=== PATIENT | male | born 1955 | race Caucasian/White ===

== ENCOUNTER 2019-02-02 21:21 | Emergency (ER) | payer OTHER, SELFPAY ==
[2019-02-02 21:42] VITALS: BP 154/87; PULSE 98; RESP 16; TEMP 36.5; O2SAT 94
--- NOTE | 2019-02-02 22:01 | ED.GENADUL_ITS ---
Discharge Plan Disposition Patient Disposition: HOME Condition: Good Discharge Details Chief Complaint: Orthopedic Clinical Impression: Contusion of left upper extremity Primary Care Provider: Rissa Rodriguez ED Provider: Mp Persaud Home Meds and New Rx's Prescriptions: Continued lisinopril 10 MG tablet 10 mg PO DAILY RF: 0 omega-3 fatty acids-fish oil 1 EACH capsule 1 ea PO DAILY RF: 0 Humulin N Pen 100 UNIT/1 ML insulin pen BID RF: 0 Humulin R Regular U-100 Insuln 100 unit/mL Solution RF: 0 Discharge Instructions Additional Instructions: X-rays are negative for fracture. Please keep your arm in a sling to help keep it elevated. You should remove it periodically for range of motion. Keep arm elevated at night to keep the swelling down. May use acetaminophen or ibuprofen for pain. You should hear from the hospital as to when to come in for ultrasound to rule out DVT tomorrow. We will have you follow-up in the ED for results. Return to ED if you develop weakness, numbness, increasing pain in the arm. Referrals: [facility] [Provider Group] Medical Decision Making Patient with significant ecchymosis and swelling to the left upper extremity. Does not have significant tenderness distally. He is neurovascularly intact distally. Has no other injuries. Will obtain x-ray of the left humerus and left elbow to rule out fracture. 23:45 - X-rays of the left humerus and left elbow are negative for acute fracture or injury per my review and preliminary radiology read. Again, suspect all of the swelling is related to dependent edema due to the fact that he has not kept his arm elevated. He clearly has significant contusion and ecchymosis of the left upper extremity. Doubt upper extremity DVT but given the amount of edema I will have him return tomorrow for an ultrasound. However, due to the recent trauma with large ecchymotic region will hold off anticoagulating tonight. Have discussed this with him at length and he understands. Patient is placed in a sling to try to keep his arm elevated. He is to keep it elevated at night. May continue Tylenol and/or Motrin for pain. Return to hospital tomorrow for ultrasound and follow-up in the ED. Discharged in good condition. HPI General Mode of arrival: ambulatory . Date/Time Provider Initiated Documentation: 02/02/19 21:54 . Limitations to Documentation: no limitations . Information obtained by: patient . HPI Narrative: Patient presents to ED with left upper extremity pain and swelling. Patient fell off his wood pile onto his left arm 4 days ago. He has had pain in the left elbow and left mid upper arm since then. He developed bruising. Today his arm has been more swollen. He denies any numbness, tingling, weakness in the arm. He denies injury elsewhere. He did not have loss of consciousness. He denies headache. He denies neck or back pain. He denies rib pain or shortness of breath. He has no abdominal complaints. However, because of the increased swelling to the arm he came in for evaluation. Related Data Home Medications Medication Instructions Recorded Confirmed Humulin N Pen BID 03/09/13 03/09/13 lisinopril 10 mg PO DAILY tab-cap 08/05/17 02/02/19 omega-3 fatty acids-fish oil 1 ea PO DAILY 08/05/17 02/02/19 Humulin R Regular U-100 Insuln 02/02/19 Allergies Allergy/AdvReac Type Severity Reaction Status Date / Time simvastatin Allergy Mild Other (See Unverified 02/02/19 21:49 Comment) General Stated Complaint: Orthopedic LANETTE: 4 Review of Systems Review of Systems As documented in HPI otherwise negative as below. Const: no fever, chills, weakness Resp: no cough, SOB, pleuritic pain CV: no CP, diaphoresis, syncope GI: no abdominal pain, nausea, vomiting, diarrhea Neuro: no headache, numbness, focal weakness, confusion PFSH Medical History Diabetes mellitus (Chronic) Surgical History S/P Achilles tendon repair (Inactive) Social History Smoking/Tobacco Use Status: Never Alcohol Intake: never Drug use: Never Do you feel safe at home: Yes Do you feel safe in your relationship?: Yes Exam Narrative Exam Narrative: 1. Const: WDWN male in NAD. 2. Eyes: No conjunctival injection or scleral icterus. 3. ENT: NC/AT. No facial swelling or tenderness. Mucous membranes moist. 4. Neck: Supple without adenopathy. Trachea midline. No cervical spine ten derness. Normal ROM. 5. CVS: +S1/S2, No murmurs or gallops. . 6. RESP: Unlabored respiratory effort. Clear to auscultation bilaterally. No wheezes rales or rhonchi. No chest wall tenderness 7. GI: Soft, NT/ND, No hepatosplenomegaly. No guarding or rebound. 8. MSK: No C/C present. LUE with edema extending down to hand. Large ecchymotic region medial upper arm extending down to forearm. Radial and ulna pulse present. Distal motor and sensory in tact. Unable to raise arm up but able to flex and extend, pronate and supinate elbow. Tender in mid upper arm. No tenderness to shoulder/clavicle area. RUE and BLE normal. TLS spine is non- tender. 9. Skin: Warm, Dry. Large ecchymosis LUE 10. Neuro: A&O x3. superintendent electric power II-XII grossly intact. Sensation grossly intact, no focal neurologic deficits. 11. Psych: Appropriate mood and affect Course Vital Signs Temperature 97.7 F 02/02/19 21:42 Pulse 98 H 02/02/19 21:42 Respiratory Rate 16 02/02/19 21:42 Blood Pressure 154/87 H 02/02/19 21:42 Pulse Oximetry 94 L 02/02/19 21:42 Temperature 97.7 F 02/02/19 21:42 Temperature Source Temporal Artery Scan 02/02/19 21:42 Pulse 98 H 02/02/19 21:42 Respiratory Rate 16 02/02/19 21:42 Respiratory Effort 02/02/19 21:42 Blood Pressure 154/87 H 02/02/19 21:42 Pulse Oximetry 94 L 02/02/19 21:42 Oxygen Delivery Method Room Air 02/02/19 21:42 Oxygen Flow Rate 0 02/02/19 21:42 Pain Level 7 02/02/19 21:48
--- NOTE | 2019-02-02 22:27 | DI.RAD_ITS ---
SYMPTOM/DIAGNOSIS: TRAUMA, PAIN, SWELLING, FELL LEFT ELBOW AND LEFT HUMERUS: There are osseous fragments seen in the posterior medial soft tissues adjacent to the distal humerus. These are of uncertain acuity and significance. No definite fracture or dislocation is appreciated. IMPRESSION: No definite acute fracture or dislocation of the left elbow or left humerus.
--- NOTE | 2019-02-02 23:37 | DI.VRAD_ITS ---
EXAM: XR Left Elbow Complete, 3 or more Views EXAM DATE/TIME: 02/02/2019 10:11 PM CLINICAL HISTORY: 63 years old, male; Injury or trauma; Fall; Initial encounter; Blunt trauma (contusions or hematomas; Elbow; Left; Injury date: 01/30/2019; Injury details: PT fell and hit the edge of a trailer TECHNIQUE: Imaging protocol: XR Left elbow, 3 or more views. COMPARISON: CR XR humerus LT 02/02/2019 10:19 PM FINDINGS: Bones/joints: Mild degenerative changes. No acute fracture. Alignment anatomic. Soft tissues: Normal. IMPRESSION: No acute bony abnormality. Dictated and Authenticated by: Leon Hopkins MD. Ordering:CAROLINE Gresham MD
--- NOTE | 2019-02-02 23:39 | DI.VRAD_ITS ---
EXAM: XR Left Humerus, 2 or More Views EXAM DATE/TIME: 02/02/2019 10:11 PM CLINICAL HISTORY: 63 years old, male; Injury or trauma; Fall; Initial encounter; Blunt trauma (contusions or hematomas; Arm, upper; Left; Injury date: 01/30/2019; Injury details: PT fell onto trailer rim TECHNIQUE: Imaging protocol: XR Left humerus, 2 or more views. COMPARISON: No relevant prior studies available. FINDINGS: Bones/joints: Normal. Soft tissues: Normal. IMPRESSION: No acute findings. Dictated and Authenticated by: Leon Hopkins MD. Ordering:CAROLINE Gresham MD
== END 2019-02-02 23:56 | disposition home or self-care (01) ==
PROVIDERS: Emergency Provider Emergency Medicine; PCP Nurse Practitioner Family
DX: S40.022A Contusion of left upper arm, initial encounter (principal); R60.9 Edema, unspecified; W01.0XXA Fall on same level from slipping, tripping and stumbling without subsequent striking against object, initial encounter
CPT/HCPCS: 99284; 73060; 73080; L3650; L3908

== ENCOUNTER 2019-02-03 14:38 | Outpatient (CLI) | payer OTHER, SELFPAY ==
--- NOTE | 2019-02-03 13:24 | DI.US_ITS ---
SYMPTOMS/DIAGNOSIS: LEFT UPPER EXTREMITY SWELLING S/P FALL LAST NIGHT LEFT UPPER EXTREMITY ULTRASOUND: The visualized portions of the left internal jugular and subclavian veins are unremarkable. The left axillary, basilic, brachial and cephalic veins show normal compression, augmentation and color flow. No evidence of a deep venous thrombus is seen in the left upper extremity. IMPRESSION: No evidence of a left upper extremity deep venous thrombus.
== END 2019-02-03 14:58 ==
PROVIDERS: PCP Nurse Practitioner Family; Visit Provider Emergency Medicine
DX: M79.89 Other specified soft tissue disorders (principal); S40.022D Contusion of left upper arm, subsequent encounter
CPT/HCPCS: 93971

== ENCOUNTER 2019-11-03 16:24 | Outpatient (REF) | payer OTHER, SELFPAY ==
[2019-11-03 19:10] LABS: Anion Gap 8.2 mmol/L (3-11); BUN 15 mg/dL (7-18); CO2 30.8 mmol/L (21.0-32.0); CREATININE 0.93 mg/dL (0.70-1.30); Chloride 103 mmol/L (98-107); Glucose 120 mg/dL (74-106); Sodium 142 mmol/L (136-145)
[2019-11-03 19:16] LABS: Calcium 9.6 mg/dL (8.5-10.1)
== END 2019-11-03 16:44 ==
LOC: NCHCN 16:24
PROVIDERS: PCP Nurse Practitioner Family; Visit Provider Nurse Practitioner Family
DX: I10 Essential (primary) hypertension (principal)
CPT/HCPCS: 80048

== ENCOUNTER 2020-08-24 05:27 | Emergency (ER) | payer OTHER, SELFPAY ==
--- NOTE | 2020-08-24 05:30 | ED.GENADUL_ITS ---
Discharge Plan Disposition Patient Disposition: HOME Condition: Improving Discharge Details Clinical Impression: Contusion of lower back and pelvis, initial encounter Primary Care Provider: Rissa Rodriguez ED Provider: Mp Persaud Meds and New Rx's Prescriptions: New lidocaine 5 % adhesive patch,medicated 1 patch topical DAILY Qty: 15 RF: 0 ibuprofen 600 mg tablet 600 mg PO Q8H PRNQty: 15 RF: 0 cyclobenzaprine 10 mg tablet 10 mg PO Q8H PRNQty: 15 RF: 0 Continued Humulin N Pen 100 UNIT/1 ML insulin pen BID RF: 0 Humulin R Regular U-100 Insuln 100 unit/mL Solution RF: 0 Discharge Instructions Instructions: Contusion in Adults (ED) Additional Instructions: Take it easy over the weekend with no heavy lifting, strenuous work. Gentle stretching and activity as tolerated along with ice on and off will be important. Medications as directed. Follow-up with primary care next week if not getting better. Return to ED for any neurologic change, abdominal pain, other concerns. Referrals: Rissa Rodriguez, [employer] [Primary Care Provider] - Medical Decision Making Patient with left lower back pain status post fall off a stepladder onto concrete. He is neurologically intact. He has no midline spinal tenderness. He reports urinating since the fall without gross hematuria. Pain extends from the costovertebral angle area to just above the pelvis. He appears very uncomfortable. Not a lot of tenderness with palpation. No obvious bruising. Suspect this is all muscular in nature with contusion but cannot rule out retroperitoneal injury given the amount of discomfort he is having. Will place IV and get laboratory studies and abdominal pelvic CT scan. Lidoderm, Flexeril, Toradol ordered. 07:30 - Patient's labs are ok. White count a little elevated likely demargination related to the stress of trauma. Urine negative. Sugar a little high but he is due for his insulin this morning. CT scan shows no r etroperitoneal injury, kidney injury, spinal injury. Patient's pain much better controlled with Lidoderm, Flexeril and Toradol. Will discharge with prescriptions for lidocaine patches, Flexeril and ibuprofen. Ice on and off for the weekend. Gentle stretching activity as tolerated. Follow-up with primary care next week if not getting better. Return to ED if any neurologic changes, abdominal pain, other concerns. Lab Data Lab results reviewed: Yes I reviewed the patient's lab results. HPI General Mode of arrival: ambulatory . Date/Time Provider Initiated Documentation: 08/24/20 05:28 . Limitations to Documentation: no limitations . Information obtained by: patient and RN notes reviewed . HPI Narrative: Patient presents to ED with lower back pain mostly left-sided status post falling off a stepladder onto his back. Patient was out in his garage trying to get some stuff done. He lost his balance on the ladder falling back onto the concrete floor. He did not strike his head and did not have loss of consciousness. He has no neck or upper back pain. He had significant lower back pain since the fall and has been unable to get comfortable. He has not taken anything at home. He denies chest pain or shortness of breath. He denies abdominal pain. He has urinated since the fall and he did not see any blood. He is unable to lie down. Feels better sitting or standing up but walks with a significant limp. Denies any weakness in the lower extremities. Denies any pain radiating into the lower extremities. Related Data Home Medications Medication Instructions Recorded Confirmed Humulin N Pen BID 03/09/13 03/09/13 Humulin R Regular U-100 Insuln 02/02/19 cyclobenzaprine 10 mg PO Q8H PRN #15 tab 08/24/20 ibuprofen 600 mg PO Q8H PRN #15 tab 08/24/20 lidocaine 1 patch TOPICAL DAILY #15 ea 08/24/20 Previous Rx's Medication Instructions Recorded cyclobenzaprine 10 mg PO Q8H PRN #15 tab 08/24/20 ibuprofen 600 mg PO Q8H PRN #15 tab 08/24/20 lidocaine 1 patch TOPICAL DAILY #15 ea 08/24/20 Allergies Allergy/AdvReac Type Severity Reaction Status Date / Time simvastatin Allergy Mild Other (See Unverified 02/02/19 21:49 Comment) General LANETTE: 4 Review of Systems Narrative: As documented in HPI otherwise negative as below. Const: no fever, chills, weakness Resp: no cough, SOB, pleuritic pain CV: no CP, diaphoresis, edema, syncope GI: no abdominal pain, nausea, vomiting, diarrhea Neuro: no headache, numbness, focal weakness, confusion [facility] Medical History (Updated 08/24/20 @ 07:35 by Mp Persaud MD) Diabetes mellitus Surgical History S/P Achilles tendon repair Social History Smoking/Tobacco Use Status: Never Alcohol Intake: never Drug use: Never Do you feel safe at home: Yes Do you feel safe in your relationship?: Yes Exam Narrative Exam Narrative: Vitals: Afebrile with normal vitals and normal room air pulse ox. Const: WDWN male appears uncomfortable. HEENT: NC/AT. Normal facial exam. Eyes: Normal conjunctiva and sclera. Neck: Supple. Trachea midline. No midline tenderness. Lungs: Normal respiratory effort. Lungs are clear. No rib tenderness. Cor: RRR without murmur/gallop. Good radial pulses. GI: Soft. NT/ND. No guarding or rebound. Back: No midline tenderness. L lumbar pain with movement, tender lower CVAT region. Neuro: A+O x 3. Normal speech, mentation. Cranial nerves II - XII grossly intact. No gross motor or sensory deficit. Ext: No deformity/tenderness. Skin: Warm and dry without lacs/abrasions.
[2020-08-24 05:34] VITALS: BP 138/79; PULSE 71; RESP 20; TEMP 36.4; O2SAT 95
[2020-08-24 06:12] LABS: Abs Immature Grans 0.11 10^3/uL (0.0-0.06); Absolute Basophil Count 0.08 10^3/uL (0.0-0.2); Absolute Eosinophil Count 0.09 10^3/uL (0.0-0.7); Absolute Lymphocyte Count 1.29 10^3/uL (1.2-3.4); Absolute Monocyte Count 1.28 10^3/uL (0.1-0.8); Absolute Neutrophil Count 12.71 10^3/uL (1.2-6.7); Basophils % 0.5; Eosinophils % 0.6; HCT 50.9 % (40.0-50.0); HGB 16.7 g/dL (13.5-17.5); Immature Grans % 0.7; Lymphocytes % 8.3; MCH 29.1 pg (27.0-33.0); MCHC 32.8 % (32.0-36.0); MCV 88.8 fL (80-95); MPV 10.6 fL (8.0-11.0); Monocytes % 8.2; Neutrophils % 81.7; Nucleated RBC 0 %; Platelet Count 256 10^3/uL (130-400); RBC 5.73 10^6/uL (4.36-5.78); RDW 12.6 % (11.8-14.1); RDW-SD 40.9 fL; WBC 15.56 10^3/uL (4.4-10.8)
[2020-08-24] MEDS: Ketorolac 15 MG/ML VIAL IVP (06:12)
[2020-08-24] MEDS: Cyclobenzaprine 10 MG TAB PO (06:12)
[2020-08-24] MEDS: Lidocaine 5% Patch 1 PATCH TP (06:12)
[2020-08-24] MEDS: Lactated Ringers 1,000 ML 150 ML IV (06:17)
[2020-08-24 06:26] LABS: ALT 53 U/L (16-63); AST 24 U/L (15-37); Albumin 3.7 g/dL (3.4-5.0); Alkaline Phosphatase 125 U/L (46-116); Anion Gap 7.6 mmol/L (3-11); BUN 18 mg/dL (7-18); Bilirubin, Total 0.7 mg/dL (0.2-1.0); CO2 25.4 mmol/L (21.0-32.0); CREATININE 1.17 mg/dL (0.70-1.30); Calcium 8.9 mg/dL (8.5-10.1); Chloride 106 mmol/L (98-107); Glucose 265 mg/dL (74-106); Potassium 4.5 mmol/L (3.5-5.1); Sodium 139 mmol/L (136-145); Total Protein 7.2 g/dL (6.4-8.2)
[2020-08-24 06:28] LABS: Bilirubin Negative (Negative); Blood Negative (Negative); Clarity Clear (Clear); Glucose 500 mg/dL (Negative); Ketones Negative (Negative); Leukocyte Esterase Negative (Negative); Nitrite Negative (Negative); Specific Gravity 1.025 (1.005-1.025); pH 5.5 (5-8)
[2020-08-24] MEDS: Normal Saline Flush 10 ML SYR IVP (06:43)
--- NOTE | 2020-08-24 06:43 | DI.CT_ITS ---
EXAM: CT ABDOMEN PELVIS W CLINICAL HISTORY: fall of ladder. TECHNIQUE: Imaging Protocol: Axial computed tomography images with coronal and sagittal reformatted images were created and reviewed CONTRAST MATERIAL: Intravenous: Omnipaque 350 Contrast volume:100 ml Oral: / no COMPARISON: No exams were available for comparison FINDINGS: ABDOMEN: Lung Bases: Mild atelectasis.. Liver: Hepatic steatosis.. No measurable mass. Gallbladder and biliary tract: No radiodense calculus or dilation. Pancreas: Normal density, no abnormal calcifications or inflammatory process. Spleen: Normal. Kidneys: Normal size, contour and axis. No radiodense stones or obstructive uropathy. No masses seen. Adrenal glands: No masses seen. Abdominal Aorta: Abdominal portion non-dilated. Small fatty containing umbilical hernia. Increased density in the on both sides of the anterior abdominal wall fat could be related to trauma versus injection sites. PELVIS: Bladder: Symmetric distention, no gross wall thickening. Bowel: Mild diverticulosis no obstruction or bowel wall thickening. Peritoneal cavity: No ascites, collection or mesenteric inflammatory response. Bones: Degenerative disc changes and facet degenerative changes. No acute fractures. Reproductive organs: Within normal limits. Lymph nodes: Unremarkable. Bilateral fatty containing inguinal hernias. Impression: Increased density in the subcutaneous fat of the anterior abdominal wall could be related to trauma v ersus injection sites. Clinical correlation is recommended. RADIATION DOSE DELIVERED: 864.22mGy.cm Total DLP DATA REPOSITORY: All CT scans at this facility are submitted to the National Radiology Data Registry (NRDR) Dose Index Registry (DIR) with the [employer] (A[employer]). RADIATION OPTIMIZATION: All CT scans at this facility use at least one of these dose optimization te chniques: automated exposure control; mA and/or kV adjustment per patient size (includes targeted exa ms where dose is matched to clinical indication); or iterative reconstruction.
[2020-08-24] MEDS: Omnipaque 350 MG/ML 100 ML BTL IJ (06:47)
[2020-08-24] MEDS: Normal Saline - Diluent 50 ML VIAL IV (06:48)
--- NOTE | 2020-08-24 07:36 | DI.VRAD_ITS ---
PROCEDURE INFORMATION: Exam: CT Abdomen And Pelvis With Contrast Exam date and time: 08/24/2020 5:53 AM Age: 65 years old Clinical indication: Abdominal pain; Generalized; Patient HX: Slipped off a rung on a ladder in garage, landed on back on cement floor TECHNIQUE: Imaging protocol: Computed tomography of the abdomen and pelvis with intravenous contrast. Radiation optimization: All CT scans at this facility use at least one of these dose optimization techniques: automated exposure control; mA and/or kV adjustment per patient size (includes targeted exams where dose is matched to clinical indication); or iterative reconstruction. Contrast material: [id number]; Contrast volume: 100 ml; Contrast route: INTRAVENOUS (IV); COMPARISON: No relevant prior studies available. FINDINGS: Lungs: Dependent atelectasis and/or scarring. Liver: There is a diffuse decrease in hepatic parenchymal density, consistent with fatty infiltration. Focal fatty sparing about the gallbladder fossa. Gallbladder and bile ducts: Unremarkable. No calcified stones. No ductal dilation. Pancreas: Unremarkable. No ductal dilation. Spleen: Unremarkable. No splenomegaly. Adrenals: Unremarkable. No mass. Kidneys and ureters: Unremarkable. No hydronephrosis. Stomach and bowel: Mild diverticulosis is present in the distal colon. There is no evidence of intestinal obstruction. There is no wall thickening to suggest enteritis or colitis. Appendix: No evidence of appendicitis. Intraperitoneal space: Unremarkable. No free air. No significant fluid collection. Vasculature: Unremarkable. No abdominal aortic aneurysm. Lymph nodes: Unremarkable. No enlarged lymph nodes. Urinary bladder: Unremarkable as visualized. Reproductive: Enlargement of the prostate gland. Bones/joints: No acute osseous findings. Thoracolumbar spondylosis. Severe bilateral facet hypertrophy at L4-L5. Severe degenerative changes of the superior sacroiliac joints. Osteitis pubis. Soft tissues: Bilateral fat containing inguinal hernias. Fat containing umbilical hernia. Bilateral symmetrical subcutaneous soft tissue densities of the lower abdomen. IMPRESSION: 1. No acute abdominopelvic findings. 2. Hepatic steatosis. 3. No acute osseous findings. 4. Mild diverticulosis of the distal colon. 5. Prostatomegaly. Correlate with PSA. 6. Bilateral symmetrical subcutaneous soft tissue densities of the lower abdomen. Recommend clinical correlation with physical examination of this area to correlate with trauma or cellulitis for example. Findings were discussed with PASQUALE HUIZAR at 08/24/2020 7:35 AM EDT. Dictated and Authenticated by: Carlos Alberto Jimenez MD. Ordering:CAROLINE Gresham MD
== END 2020-08-24 07:49 | disposition home or self-care (01) ==
PROVIDERS: Emergency Provider Emergency Medicine; PCP Nurse Practitioner Family
DX: S30.0XXA Contusion of lower back and pelvis, initial encounter (principal); W11.XXXA Fall on and from ladder, initial encounter; E11.9 Type 2 diabetes mellitus without complications; Z79.4 Long term (current) use of insulin
CPT/HCPCS: 36415; 80053; 96361; 96374; 99285; 74177; 81003; 85025; 99284; J1885; J3490

== ENCOUNTER 2021-03-24 16:32 | Outpatient (REF) | payer OTHER, SELFPAY ==
[2021-03-24 19:20] LABS: Anion Gap 7.9 mmol/L (3-11); BUN 19 mg/dL (7-18); CO2 27.1 mmol/L (21.0-32.0); CREATININE 1.1 mg/dL (0.70-1.30); Calcium 8.7 mg/dL (8.5-10.1); Chloride 105 mmol/L (98-107); Glucose 174 mg/dL (74-106); Sodium 140 mmol/L (136-145)
[2021-03-24 19:23] LABS: Hemoglobin A1C 8.7 % (<5.7)
== END 2021-03-24 16:33 | disposition home or self-care (01) ==
LOC: NCHCN 16:32
PROVIDERS: PCP Nurse Practitioner Family; Visit Provider Nurse Practitioner Family
DX: E78.5 Hyperlipidemia, unspecified (principal); E11.9 Type 2 diabetes mellitus without complications; I10 Essential (primary) hypertension
CPT/HCPCS: 80048; 83036

== ENCOUNTER 2022-01-23 00:21 | Outpatient (CLI) | payer OTHER, SELFPAY ==
--- NOTE | 2022-01-23 07:45 | DI.RAD_ITS ---
Exam(s) XR CHEST 2V PA LATERAL EXAM: XR CHEST 2V PA LATERAL CLINICAL HISTORY: DRY COUGH X 3 MOS, R05.8 TECHNIQUE: 2D digital imaging was performed. COMPARISON: CR CHEST 2 VIEWS PA,LAT from 10/10/2012 FINDINGS: The heart is not enlarged. The lungs are clear and well expanded. No pleural effusion seen. Mediastin al contours appear intact. IMPRESSION: Normal chest. RADIATION DOSE DELIVERED: Total DLP
== END 2022-01-23 00:41 ==
PROVIDERS: PCP Nurse Practitioner Family; Visit Provider Nurse Practitioner Family
DX: R05.8 Other specified cough (principal)
CPT/HCPCS: 71046

== ENCOUNTER 2023-04-17 13:50 | Emergency (ER) | payer OTHER, SELFPAY ==
[2023-04-17 13:52] VITALS: BP 160/69; PULSE 75; RESP 18; TEMP 36.7; O2SAT 96
--- NOTE | 2023-04-17 14:15 | ED.GENADUL_ITS ---
Discharge Plan Disposition Patient Disposition: Home Condition: Stable Discharge Details Clinical Impression: Cellulitis, Infected hematoma Primary Care Provider: Rissa Rodriguez ED Provider: Dalila Gee Home Meds and New Rx's Prescriptions: New cephalexin 500 mg capsule 500 mg PO QID 10 Days Qty: 40 0RF Continued omega-3 fatty acids [Fish Oil Concentrate] 1,000 mg capsule 1,000 mg PO DAILY aspirin [Adult Aspirin Regimen] 81 mg tablet,delayed release (DR/EC) 81 mg PO DAILY Humulin N Pen 100 UNIT/1 ML insulin pen BID Patient Comments: 08/05/17 RECORDS SHOW PT TAKES BID 40-45U.HE Humulin R Regular U-100 Insuln 100 unit/mL Solution lidocaine 5 % adhesive patch,medicated 1 patch topical DAILY Qty: 15 0RF Rx Instructions: leave on most painful area for up to 12 hrs ibuprofen 600 mg tablet 600 mg PO Q8H PRNQty: 15 0RF cyclobenzaprine 10 mg tablet 10 mg PO Q8H PRNQty: 15 0RF Discharge Instructions Instructions: Cellulitis (ED) Additional Instructions: Your x-ray is reassuring here today. However, I am concerned that you have a cellulitis and possible infected hematoma. Please encourage rest, ice, elevation. Tylenol and ibuprofen as needed for discomfort. Please encourage hydration. Please continue to monitor your glucose closely and keep this within a tight range as recommended by your primary care provider. Please take the antibiotics as prescribed. Even if symptoms improve, please take the entire course. Is taken 4 times a day for the next 10 days. Please call your primary care on Wednesday and schedule follow-up appointment as soon as possible this week. If you develop fever/chills, spreading of the redness or other new/worsening symptom please seek care urgently once again Referrals: Pinky Sibley [NURSE PRACTITIONER] - Discharge Data Discharge Date/Time-TO BE ENTERED AT DEPARTURE: 04/17/23 15:46 Medical Decision Making Patient is a pleasant 67-year-old male, accompanied by his significant other, with chief complaint of right lower extremity pain and redness that began 8 days ago. He reports that 8 days ago he was at work when a log rolled downhill and struck his anterior right tibia. Past medical history significant for type 2 diabetes which he reports is moderately controlled, and right-sided Achilles tendon rupture with surgical repair. He reports that he has been elevating and icing which can help some with the discomfort and swelling. However, the area has began some shifting from ecchymotic to erythematous and have increased pain. He denies any fevers or chills. Continues to work but states that he has had to cut back on his exercise secondary to the leg pain. He denies any chronic sensory deficits associated with his diabetes, he denies any sensory changes with this injury. No shortness of breath or chest pain. On exam, patient appears nontoxic. He is hemodynamically stable. He has a tense and warm appearing anterior tibia degree on the medial aspect where there is an area of fluctuance. The erythema extends to the ankle. He does have ecchymosis over the toes but no pain here. Based on history, the ecchymosis on the toe sounds to have spread downward over the past 2 days from the site of the initial injury which was more in the tibia. His incision from his Achilles tendon repair appears to healed well. I did evaluate the area with a ultrasound and he has a well defined fluid collection. This does not extend into the knee and he has full range of motion. No pain in the posterior aspect of the calf and this area is soft with a negative Homans' sign. Consulted with Dr. Ledbetter. He advised that we could wait to open, use oral abx. Advised that secondary infection is more concerning. Discussed abx selection, will give Keflex. We discussed using clindamycin but will hold off given the patient's history of Achilles tendon rupture. FINDINGS: Bones/joints: Mild degenerative changes of the medial talar tibial joint. Slight bowing of the fibula likely from prior injury. Soft tissues: Soft tissue swelling along the medial aspect of the knee. IMPRESSION: 1. ? No evidence for acute bony injury. If clinical symptoms persist recommend followup film in 7-10 days. 2. ? Soft tissue swelling medial aspect of the leg. Discussed these findings as well as orthopedic recommendations. Again, this is most concerning for a hematoma with overlying cellulitis or infection within the hematoma. Dr. Ledbetter had advised that given the location of the hematoma, the risk of complications from poor healing of her to open this now outweighs the benefits. For that reason, patient I discussed using the Keflex and encouraged that he take this exactly as prescribed and even if symptoms improve to take the entire course. I asked that he follow-up with primary care at the beginning of next week. Strict return precautions were discussed. Encouraged that he elevate. To help with discomfort as well as some of the swelling, will apply Gary wrap. All of his questions and concerns were addressed and he and his are in agreement with this plan. HPI General Date/Time Provider Initiated Documentation: 04/17/23 13:54 . Limitations to Documentation: no limitations . Information obtained by: patient, family () and RN notes reviewed . History of Present Illness 67 year old M presents to the emergency department with the chief complaint of erythema, pain RLE after injury 8 days ago, described as moderate (denies significant pain, none when at rest), Quality is described as aching, and is localized to the right and lower extremity. Patient reports no radiation. Patient started experiencing this day(s) (8) and it has been constant. Immobilization improves symptom(s), Movement worsens symptoms . Patient notes no other symptoms.. Patient did receive the following treatments prior to arrival, none Related Data Home Medications Medication Instructions Recorded Confirmed insulin NPH isoph U-100 human 100 BID 03/09/13 03/09/13 unit/mL (3 mL) subcutaneous pen (Humulin N Pen) insulin regular human 100 unit/mL 02/02/19 injection solution (Humulin R Regular U-100 Insulin) cyclobenzaprine 10 mg tablet 10 mg PO Q8H PRN #15 tabs 08/24/20 ibuprofen 600 mg tablet 600 mg PO Q8H PRN #15 tabs 08/24/20 04/17/23 lidocaine 5 % topical patch 1 patch topical DAILY #15 ea 08/24/20 04/17/23 aspirin 81 mg tablet,delayed 81 mg PO DAILY 04/15/21 04/17/23 release (Adult Aspirin Regimen) omega-3 fatty acids 1,000 mg 1,000 mg PO DAILY 04/15/21 04/17/23 capsule (Fish Oil Concentrate) cephalexin 500 mg capsule 500 mg PO QID 10 days #40 caps 04/17/23 Previous Rx's Medication Instructions Recorded cyclobenzaprine 10 mg tablet 10 mg PO Q8H PRN #15 tabs 08/24/20 ibuprofen 600 mg tablet 600 mg PO Q8H PRN #15 tabs 08/24/20 lidocaine 5 % topical patch 1 patch topical DAILY #15 ea 08/24/20 cephalexin 500 mg capsule 500 mg PO QID 10 days #40 caps 04/17/23 Allergies Allergy/AdvReac Type Severity Reaction Status Date / Time simvastatin Allergy Mild Other (See Unverified 02/02/19 21:49 Comment) General Stated Complaint: Vascular LANETTE: 3 Review of Systems Constitutional Constitutional: Reports as per HPI, Denies chills, Denies fever(s) and Denies weakness Cardiovascular Cardiovascular: Reports as per HPI Musculoskeletal Musculoskeletal: Reports as per HPI and Denies tingling Integumentary/Breasts Skin/Breast: Reports as per HPI and Denies wounds Neurologic Neurologic: Reports as per HPI, Denies tingling, Denies paresthesias and Denies weakness PFSH All Active Problems (Updated 04/17/23 @ 15:25 by CAMERON Anderson) Cellulitis (Acute) Infected hematoma (Acute) Ganglion cyst of joint of finger of right hand (Acute) Type 2 diabetes mellitus without complications (Acute) Diabetic retinopathy (Acute) Screening for colon cancer (Acute) Medical History (Updated 04/17/23 @ 15:25 by CAMERON Anderson) Diabetes mellitus Surgical History S/P Achilles tendon repair Social History Smoking/Tobacco Use Status: Never Smoking risk assessment performed?: Yes Alcohol Intake: never Drug use: Never Substance use type: does not use Do you feel safe at home: Yes Do you feel safe in your relationship?: Yes Exam Const General: cooperative, healthy appearing, comfortable, no acute distress, well developed and well groomed Nutritional Appearance: average body habitus and well nourished Orientation: alert and awake Resp Effort & Inspection: normal respiratory effort, able to speak in complete sentences and no respiratory distress Cardio Rate: regular rate Rhythm: regular rhythm Skin General skin exam: ecchymosis (now into the foot), erythema and fluctuance Lesions: no lesions Rashes: no rashes Trauma: other (ecchymosis) Neuro General: patient alert and patient awake Cognition: normal cognition Speech: speech normal Gait: normal gait Motor: muscle tone normal throughout Sensory Exam: no sensory deficits noted Extrem Ankle/foot/toe images: 1. Area of erythema and warmth. On the proximal aspect is a 5 cm in circumference area of well-defined fluctuance. This area is area of maximal tenderness. His lung medial aspect of the mid tibia. No break in the skin. No palpable deformity in the bone. He has 2+ distal pulses. Sensation is intact into the foot. He does have ecchymosis over the toes and the lateral foot that appears to be fading. Intact capillary refill. He has limited range of motion of the ankle which is reported to be baseline. Well-healed incision in the posterior ankle consistent with his history of Achilles tendon repair. No calf pain. Calf is soft. Negative Homans. Psych Appearance: grossly normal and well kempt Mental Status: mental status grossly normal Speech and Movement: speech and movement normal Course Vital Signs Vital signs: Vital Signs Temperature 36.7 C 04/17/23 13:52 Pulse 75 04/17/23 13:52 Respiratory Rate 18 04/17/23 13:52 Blood Pressure 160/69 H 04/17/23 13:52 Pulse Oximetry 96 04/17/23 13:52 Temperature 36.7 C 04/17/23 13:52 Temperature Source Oral 04/17/23 13:52 Pulse 75 04/17/23 13:52 Respiratory Rate 18 04/17/23 13:52 Respiratory Effort Normal, Non-Labored 04/17/23 14:06 Blood Pressure 160/69 H 04/17/23 13:52 Blood Pressure Position Sitting 04/17/23 13:52 Pulse Oximetry 96 04/17/23 13:52 Oxygen Delivery Method Room Air 04/17/23 13:52 Oxygen Flow Rate 0 04/17/23 13:52
--- NOTE | 2023-04-17 14:15 | DI.RAD_ITS ---
Exam(s) XR TIB/FIB RT EXAM: XR TIB/FIB RT CLINICAL HISTORY: hit with log anterior medial mid calf. TECHNIQUE: 2D digital imaging was performed of the right tibia and fibula. Two images were obtained. AP and lateral views were obtained. COMPARISON: No exams were available for comparison FINDINGS: BONES: No acute fracture is present. No bony destructive lesion is seen. Visualized portion of knee a nd ankle joints are unremarkable. Tiny well corticated densities are seen at the tips of both the med ial lateral malleoli which appear old. SOFT TISSUE: Atherosclerosis. Mild soft tissue swelling in the medial aspect of the mid lower leg. No radiopaque foreign body. IMPRESSION: No acute fracture or dislocation. No radiopaque foreign bodies. DATA REPOSITORY: RADIATION DOSE DELIVERED:
--- NOTE | 2023-04-17 15:00 | DI.VRAD_ITS ---
PROCEDURE INFORMATION: Exam: XR Right Tibia and Fibula Exam date and time: 04/17/2023 2:39 PM Age: 67 years old Clinical indication: Injury or trauma; Other: Log rolled onto leg; Crushing; Lower leg; Left TECHNIQUE: Imaging protocol: Radiologic exam of the right tibia and fibula. Views: 2 views. COMPARISON: No relevant prior studies available. FINDINGS: Bones/joints: Mild degenerative changes of the medial talar tibial joint. Slight bowing of the fibula likely from prior injury. Soft tissues: Soft tissue swelling along the medial aspect of the knee. IMPRESSION: 1. No evidence for acute bony injury. If clinical symptoms persist recommend followup film in 7-10 days. 2. Soft tissue swelling medial aspect of the leg. Dictated and Authenticated by: Ashlee Taylor MD. Ordering:GRIFFIN Conner MD
[2023-04-17 15:46] VITALS: RESP 20
== END 2023-04-17 15:46 | disposition home or self-care (01) ==
PROVIDERS: Emergency Provider Physician Assistant; PCP Nurse Practitioner Family
DX: S80.11XA Contusion of right lower leg, initial encounter (principal); L03.115 Cellulitis of right lower limb; E11.9 Type 2 diabetes mellitus without complications; Z79.4 Long term (current) use of insulin; Y99.0 Civilian activity done for income or pay; Z98.890 Other specified postprocedural states; Z88.8 Allergy status to other drugs, medicaments and biological substances; L08.9 Local infection of the skin and subcutaneous tissue, unspecified
CPT/HCPCS: 99284; 73590

== ENCOUNTER 2023-07-06 08:51 | Outpatient (REF) | payer OTHER, SELFPAY ==
[2023-07-06 16:45] LABS: Anion Gap 8.2 mmol/L (3-11); BUN 16 mg/dL (7-18); CO2 26.8 mmol/L (21.0-32.0); Calcium 8.8 mg/dL (8.5-10.1); Calculated LDL 112 mg/dL (<100); Chloride 103 mmol/L (98-107); Cholesterol 176 mg/dL (<200); Estimated GFR 82.49 (mL/min/1.73m2); Glucose 102 mg/dL (74-106); HDL Cholesterol 42 mg/dL (40-60); Potassium 3.7 mmol/L (3.5-5.1); Sodium 138 mmol/L (136-145); Triglyceride 114 mg/dL (<150)
== END 2023-07-06 08:52 | disposition home or self-care (01) ==
LOC: NCHCN 08:51
PROVIDERS: PCP Nurse Practitioner Family; Visit Provider Nurse Practitioner Family
DX: Z00.00 Encounter for general adult medical examination without abnormal findings (principal); I10 Essential (primary) hypertension; E78.5 Hyperlipidemia, unspecified; E11.9 Type 2 diabetes mellitus without complications
CPT/HCPCS: 80048; 80061

== ENCOUNTER 2024-08-03 15:36 | Outpatient (REF) | payer OTHER, SELFPAY ==
[2024-08-03 16:10] LABS: ALT 66 U/L (16-63); AST 33 U/L (15-37); Alkaline Phosphatase 91 U/L (46-116); Anion Gap 7.1 mmol/L (3-11); BUN 16 mg/dL (7-18); Bilirubin, Total 0.67 mg/dL (0.2-1.0); CO2 27.9 mmol/L (21.0-32.0); CREATININE 1.1 mg/dL (0.70-1.30); Calcium 9.1 mg/dL (8.5-10.1); Chloride 103 mmol/L (98-107); Estimated GFR 73.12 (mL/min/1.73m2); Glucose 92 mg/dL (74-106); Sodium 138 mmol/L (136-145); Total Protein 7.6 g/dL (6.4-8.2)
[2024-08-03 16:27] LABS: Hemoglobin A1C 7.9 % (<5.7)
[2024-08-03 18:57] LABS: Calculated LDL 118 mg/dL (<100); Cholesterol 193 mg/dL (<200); HDL Cholesterol 53 mg/dL (40-60); Triglyceride 112 mg/dL (<150)
[2024-08-04 19:43] LABS: PSA, Screening 0.7 ng/mL (<=4.5)
== END 2024-08-03 15:37 | disposition home or self-care (01) ==
LOC: NCHCN 15:36
PROVIDERS: PCP Nurse Practitioner Family; Visit Provider Family Medicine
DX: E11.9 Type 2 diabetes mellitus without complications (principal); Z00.00 Encounter for general adult medical examination without abnormal findings; Z12.5 Encounter for screening for malignant neoplasm of prostate
CPT/HCPCS: 80053; 80061; 84153; 83036

== ENCOUNTER 2025-04-03 13:15 | Emergency (ER) | payer OTHER, SELFPAY ==
[2025-04-03 13:17] VITALS: BP 176/72; PULSE 85; RESP 16; TEMP 36.6; O2SAT 98
--- NOTE | 2025-04-03 13:30 | DI.RAD_ITS ---
Exam(s) XR ANKLE RT COMPLETE EXAM: XR ANKLE RT COMPLETE CLINICAL HISTORY: Right ankle pain. TECHNIQUE: 2D digital imaging was performed. COMPARISON: CR LEFT ANKLE COMPLETE from 03/09/2013 FINDINGS: 3 views No evidence of acute fracture or widening the ankle mortise. Talar dome appears unremarkable. There are some degenerative changes in the medial aspect of the tibial talar joint. Subtalar joint appear s unremarkable. Incidentally noted is calcification at the Achilles insertion site on the posterior calcaneus. There is also abnormal increased density within the pre Achilles fat pad as seen on the lateral view. IMPRESSION: As above. If clinically indicated further study with MRI can be performed for added sensitivity/spec ificity. DATA REPOSITORY: RADIATION DOSE DELIVERED:
--- NOTE | 2025-04-03 14:59 | ED.GENADUL_ITS ---
Discharge Plan Disposition Patient Disposition: Home Discharge Details Clinical Impression: Sprain of ankle, right Primary Care Provider: Rissa Rodriguez ED Provider: Laura Montague Home Meds and New Rx's Prescriptions: No Action omega-3 fatty acids [Fish Oil Concentrate] 1,000 mg capsule 1,000 mg PO DAILY Humulin N Pen 100 UNIT/1 ML insulin pen 55 unit subcut BID Patient Comments: 08/05/17 RECORDS SHOW PT TAKES BID 40-45U.HE Humulin R Regular U-100 Insuln 100 unit/mL Solution 1 sliding scale dose subcut TID Patient Comments: sliding scale lidocaine 5 % adhesive patch,medicated 1 patch topical DAILY Qty: 15 0RF Rx Instructions: leave on most painful area for up to 12 hrs ibuprofen 600 mg tablet 600 mg PO Q8H PRNQty: 15 0RF Discharge Instructions Instructions: Walking Boot Additional Instructions: Your x-ray today does not indicate a fracture of the bones, but you do have signs concerning for a likely ankle sprain. You have been provided with a walking boot to wear. Wear the boot while walking and working, but you can take it off if you are home and resting, take it off to shower and to sleep. Please keep your foot elevated as much as possible, continue ice, Motrin and Tylenol for pain. Please follow-up with your PCP if your symptoms are not improving and you are not returning to normal function HPI General Date/Time Provider Initiated Documentation: 04/03/25 13:36 . Limitations to Documentation: no limitations . Information obtained by: patient . HPI Narrative: 69-year-old gentleman with past medical history of diabetes presents for evaluation of right ankle pain. He reports that 4 days ago he stepped awkwardly and rolled his right ankle. He reports that he had immediate onset of pain and difficulty walking though he continued his work for the day. He reports that he has noted swelling and bruising. Though he states that he has been trying some elevation in Epsom salts and has noted improvement in the swelling. He reports the pain is a localized to the medial aspect of the ankle. He denies any calf pain or tenderness. Related Data Home Medications ?Medication ?Instructions ?Recorded ?Confirmed insulin NPH isoph U-100 human 100 55 unit subcut BID 03/09/13 04/03/25 unit/mL (3 mL) subcutaneous pen (Humulin N Pen) insulin regular human 100 unit/mL 1 sliding scale dose subcut TID 02/02/19 04/03/25 injection solution (Humulin R Regular U-100 Insulin) ibuprofen 600 mg tablet 600 mg PO Q8H PRN #15 tabs 08/24/20 04/03/25 lidocaine 5 % topical patch 1 patch topical DAILY #15 ea 08/24/20 04/03/25 omega-3 fatty acids 1,000 mg 1,000 mg PO DAILY 04/15/21 04/03/25 capsule (Fish Oil Concentrate) Previous Rx's ?Medication ?Instructions ?Recorded ibuprofen 600 mg tablet 600 mg PO Q8H PRN #15 tabs 08/24/20 lidocaine 5 % topical patch 1 patch topical DAILY #15 ea 08/24/20 Allergies Allergy/AdvReac Type Severity Reaction Status Date / Time simvastatin Allergy Mild Other (See Unverified 04/03/25 13:20 Comment) General Stated Complaint: Orthopedic LANETTE: 4 Exam Narrative Exam Narrative: Review of Systems: All systems reviewed & are unremarkable except as noted in HPI and below Well-developed, no acute distress Unlabored respiratory effort Right lower extremity with swelling noted to the foot and ankle. There is tenderness of the medial ankle without instability. Good cap refill of the toes, Achilles and tendon is intact, no proximal tibial tenderness or calf tenderness Course Vital Signs Vital signs: Vital Signs Temperature 36.6 C 04/03/25 13:17 Pulse 85 04/03/25 13:17 Respiratory Rate 16 04/03/25 13:17 Blood Pressure 176/72 H 04/03/25 13:17 Pulse Oximetry 98 04/03/25 13:17 Temperature 36.6 C 04/03/25 13:17 Pulse 85 04/03/25 13:17 Respiratory Rate 16 04/03/25 13:17 Blood Pressure 176/72 H 04/03/25 13:17 Pulse Oximetry 98 04/03/25 13:17 Pain Level 5 04/03/25 13:17 Medical Decision Making Emergent evaluation of right ankle pain after rolling it. Patient reports that the injury occurred several days ago and he has noted improvement in the swelling and the discomfort and he is ambulatory. The patient examination does not reveal any signs or symptoms concerning for infectious etiology or Achilles tendon rupture. X-ray was obtained at triage and this does not reveal an acute bony process. The changes noted in the Achilles tendon are likely secondary to prior Achilles surgery and not an acute process. The patient was provided with a walking boot and guidance for home stretching and strength training of the ankle, elevation, ice and close monitoring. If symptoms are not improving, is recommended that the patient follow-up closely with his PCP. Quality:SDOH Health Related Social Needs: No Data to Display PFSH All Active Problems (Updated 04/03/25 @ 14:45 by Laura Montague MD) Sprain of ankle, right (Acute) Ganglion cyst of joint of finger of right hand (Acute) Type 2 diabetes mellitus without complications (Acute) Diabetic retinopathy (Acute) Screening for colon cancer (Acute) Medical History (Updated 04/03/25 @ 14:45 by Laura Montague MD) Contusion of right lower leg Hyperlipemia HTN (hypertension) Diabetes mellitus Surgical History S/P Achilles tendon repair Social History Smoking/Tobacco Use Status: Never Smoking risk assessment performed?: Yes Alcohol Intake: never Drug use: Never Substance use type: does not use Do you feel safe at home: Yes Do you feel safe in your relationship?: Yes
--- NOTE | 2025-04-23 08:27 | NUR.NOTE ---
Access chart to print the provider note and radiology report to fax to [facility] billing request. Nursing Note:
== END 2025-04-03 15:07 | disposition home or self-care (01) ==
PROVIDERS: Emergency Provider Emergency Medicine; PCP Family Medicine
DX: S93.401A Sprain of unspecified ligament of right ankle, initial encounter (principal); X58.XXXA Exposure to other specified factors, initial encounter
CPT/HCPCS: 99283 ×2; 29515; 73610